=== PATIENT | male | born 1980 | race Caucasian/White ===

== ENCOUNTER → 2020-01-30 10:35 | Outpatient (BNVA) | payer OTHER, SELFPAY | PROVIDERS: Visit Provider Emergency Medicine | DX: Z20.828 Contact with and (suspected) exposure to other viral communicable diseases (principal) | CPT/HCPCS: 87635 ==

== ENCOUNTER → 2023-02-09 12:42 | Outpatient (BNVA) | payer SELFPAY | PROVIDERS: Visit Provider Nurse Practitioner Family | DX: M25.552 Pain in left hip (principal); R07.81 Pleurodynia | CPT/HCPCS: 71100; 73502 ==